=== PATIENT | female | born 1980 | race Two or more races ===

== ENCOUNTER 2019-01-17 18:31 | Emergency (ER) | payer OTHER ==
--- NOTE | 2019-01-17 18:37 | PDOC ---
Rapid Medical Evaluation Time Seen by Provider: 01/17/19 18:36 Medical Evaluation: 01/17/19 18:36 CC: cough x3 weeks PE: Speaking full sentences. Lungs CTAB. Orders: cxr Patient will proceed to ED for further evaluation. Discharge Disposition - Diagnosis Cough - Referrals - Patient Instructions - Post Discharge Activity
[2019-01-17 18:46] VITALS: BP 146/66; PULSE 104; TEMP 98.2; BMI 34.3
--- NOTE | 2019-01-17 19:32 | PDOC ---
History of Present Illness - General Chief Complaint: Cold Symptoms Stated Complaint: COUGH Time Seen by Provider: 01/17/19 18:36 History Source: Patient Exam Limitations: No Limitations - History of Present Illness Initial Comments: 01/17/19 19:41 Chief complaint: Cough Patient is a 38-year-old female with no significant medical history except reflux who states she has had a cough for a month. No fever. Patient states the cough is getting worse. Patient took antibiotics, unknown that she had at home. Has not seen a doctor. No fever. No recent travel. Non-smoker GENERAL/CONSTITUTIONAL: No fever, weakness. dizziness HEAD, EYES, EARS, NOSE AND THROAT: No change in vision. No ear pain or discharge. No sore throat. CARDIOVASCULAR: No chest pain RESPIRATORY: No shortness of breath or cough GASTROINTESTINAL: No pain, nausea, vomiting, diarrhea or constipation GENITOURINARY: No dysuria MUSCULOSKELETAL: No neck or back pain SKIN: No rash NEUROLOGIC: No headache, vertigo, loss of consciousness, or loss of sensation. GENERAL: The patient is awake, alert, and fully oriented, in no acute distress. HEAD: Normal with no signs of trauma. EYES: Pupils equal, round and reactive to light, sclera anicteric, conjunctiva clear. ENT: pharynx: no erythema, no exudate, uvula midline NECK: supple CHEST: clear, but has frequent cough when takes deep breath, nontender, rr ABD: soft, nontender BACK: no tenderness or signs of injury EXTREMITIES: Normal range of motion, no edema. NEUROLOGICAL: Normal speech, normal gait. SKIN: Warm, Dry Past History - Past Medical History Allergies/Adverse Reactions: Allergies Allergy/AdvReac Type Severity Reaction Status Date / Time No Known Allergies Allergy Verified 01/17/19 18:37 Home Medications: Ambulatory Orders Albuterol Sulfate Inhaler - [Ventolin Hfa Inhaler -] 2 inh PO Q4H #1 inh predniSONE [Deltasone -] 40 mg PO DAILY #8 tablet 01/17/19 COPD: No - Immunization History Immunization Up to Date: Yes - Psycho Social/Smoking Cessation Hx Smoking History: Never smoked Information on smoking cessation initiated: No Hx Alcohol Use: No Drug/Substance Use Hx: No *Physical Exam - Vital Signs Last Vital Signs Temp Pulse Resp BP Pulse Ox 98.2 F 104 H 22 H 146/66 100 01/17/19 18:37 01/17/19 18:37 01/17/19 18:37 01/17/19 18:37 01/17/19 18:37 Medical Decision Making - Medical Decision Making 01/17/19 19:42 38-year-old female with reflux with cough for 1 month, getting worse, no fever, took antibiotics, unknown that she had at home. Patient has frequent cough although not wheezing sounds like reactive. We will give DuoNeb, prednisone, chest x-ray and reassess Patient greatly improved after 2 duo nebs and prednisone, chest x-ray does not show acute process Discussed issues, findings, results, applicable medications and treatments and follow-up. All these were understood and all questions were answered 01/17/19 20:49 Discharge - Discharge Information Problems reviewed: Yes Clinical Impression/Diagnosis: Reactive airway disease Qualifiers: Asthma severity: moderate Asthma persistence: persistent Asthma complication type: with acute exacerbation Qualified Code(s): J45.41 - Moderate persistent asthma with (acute) exacerbation Condition: Stable Disposition: HOME - Admission No - Additional Discharge Information Prescriptions: Albuterol Sulfate Inhaler - [Ventolin Hfa Inhaler -] 2 inh PO Q4H #1 inh predniSONE [Deltasone -] 40 mg PO DAILY #8 tablet - Follow up/Referral Referrals: Eliseo Demarco MD [Primary Care Provider] - - Patient Discharge Instructions Patient Printed Discharge Instructions: DI for Reactive Airway Disease-Adult Additional Instructions: Use albuterol inhaler, 2 puffs every 4 hours as needed for wheezing. Take prednisone 40 mg once daily until finished. Return to the ER if fever, shortness of breath or getting sicker. Otherwise follow-up with your doctor in one to 2 days - Post Discharge Activity
[2019-01-17] MEDS ORDERED: predniSONE 20 MG TABLET (UD) PO ONE (19:37)
[2019-01-17] MEDS ORDERED: ALBUTEROL SO4 2.5/IPRATROPIUM 0.5 INH SOL 3 ML VIAL.NEB. NEB ONE ×3 (19:38→20:23)
[2019-01-17] MEDS ORDERED: predniSONE 20 MG TABLET (UD) ONE (20:04)
== END 2019-01-17 21:04 | disposition home or self-care (01) ==
LOC: JER 18:31 → JERFT 18:31
PROC: 3E0F7GC Introduction of Other Therapeutic Substance into Respiratory Tract, Via Natural or Artificial Opening (ICD-10-PCS; principal; 2019-01-17)
PROC: 3E0F7GC Introduction of Other Therapeutic Substance into Respiratory Tract, Via Natural or Artificial Opening (ICD-10-PCS; 2019-01-17)
DX: J45.41 Moderate persistent asthma with (acute) exacerbation (principal)
CPT/HCPCS: 71046-TC-FY; 99281-25

== ENCOUNTER 2019-05-22 18:10 | Emergency (ER) | payer OTHER ==
--- NOTE | 2019-05-22 18:26 | PDOC ---
Rapid Medical Evaluation Chief Complaint: Sore Throat Time Seen by Provider: 05/22/19 18:21 Medical Evaluation: Allergies Allergy/AdvReac Type Severity Reaction Status Date / Time No Known Allergies Allergy Verified 05/22/19 18:22 Vital Signs Temp Pulse Resp BP Pulse Ox 98.0 F 105 H 20 153/83 100 05/22/19 18:22 05/22/19 18:22 05/22/19 18:22 05/22/19 18:22 05/22/19 18:22 05/22/19 18:24 I have performed a brief in-person evaluation of this patient. The patient presents with a chief complaint of: throat discomfort/itching, no rash. No known allergies. No new meds/foods Pertinent physical exam findings:stable I have ordered the following:nothing The patient will proceed to the ED for further evaluation. Discharge Disposition - Diagnosis Throat irritation - Referrals - Patient Instructions - Post Discharge Activity
[2019-05-22 18:29] VITALS: BP 153/83; PULSE 105; TEMP 98; BMI 34.3
--- NOTE | 2019-05-22 18:46 | PDOC ---
History of Present Illness - General Chief Complaint: Sore Throat Stated Complaint: SORE THROAT Time Seen by Provider: 05/22/19 18:21 - History of Present Illness Initial Comments: 05/22/19 18:44 39-year-old female with sore throat x2 days no fever no comorbidities Past History - Past Medical History Allergies/Adverse Reactions: Allergies Allergy/AdvReac Type Severity Reaction Status Date / Time No Known Allergies Allergy Verified 05/22/19 18:22 Home Medications: Ambulatory Orders Albuterol Sulfate Inhaler - [Ventolin Hfa Inhaler -] 2 inh PO Q4H #1 inh predniSONE [Deltasone -] 40 mg PO DAILY #8 tablet 01/17/19 COPD: No - Immunization History Immunization Up to Date: Yes - Psycho Social/Smoking Cessation Hx Smoking History: Never smoked Have you smoked in the past 12 months: No Information on smoking cessation initiated: No Hx Alcohol Use: No Drug/Substance Use Hx: No Review of Systems - Review of Systems HEENTM: Yes: Throat Pain *Physical Exam - Vital Signs Last Vital Signs Temp Pulse Resp BP Pulse Ox 98.0 F 105 H 20 153/83 100 05/22/19 18:22 05/22/19 18:22 05/22/19 18:22 05/22/19 18:22 05/22/19 18:22 - Physical Exam 05/22/19 18:44 GENERAL: The patient is awake, alert, and fully oriented, in no acute distress. HEAD: Normal with no signs of trauma. EYES: sclera anicteric, conjunctiva clear. ENT: Ears normal tympanic membranes normal oropharynx clear uvula midline; there is a vesicular lesion on the soft palate NECK: Normal range of motion LUNGS: Breath sounds equal, clear to auscultation bilaterally. No wheezes, and no crackles. HEART: S1 and S2 without murmur, rub or gallop. ABDOMEN: Soft, nontender, normoactive bowel sounds. No guarding, no rebound. No masses. EXTREMITIES: Normal range of motion, no edema. No clubbing or cyanosis. No cords, erythema, or tenderness. NEUROLOGICAL: Cranial nerves II through XII grossly intact. PSYCH: Normal mood, normal affect. SKIN: Warm, Dry, normal turgor, no rashes or lesions noted. Medical Decision Making - Medical Decision Making 05/22/19 18:45 Discussed warm salt water gargles Tylenol and Motrin for pain follow-up with ENT most likely a viral illness Discharge - Discharge Information Problems reviewed: Yes Clinical Impression/Diagnosis: Throat irritation Condition: Stable Disposition: HOME - Admission No - Follow up/Referral Referrals: Eliseo Demarco MD [Primary Care Provider] - Edvin Bob MD [Staff Physician] - - Patient Discharge Instructions Additional Instructions: Tylenol and Motrin for pain as directed. Warm salt water gargles 5-6 times a day. Return to the emergency room for worsening symptoms. Without fail, follow -up with ENT in 2 to 3 days for further evaluation and treatment options. - Post Discharge Activity
== END 2019-05-22 18:51 | disposition home or self-care (01) ==
LOC: JER 18:10
DX: R07.0 Pain in throat (principal)
CPT/HCPCS: 99282-25

== ENCOUNTER 2019-05-24 10:56 | Day surgery (SDC) | payer OTHER ==
[2019-05-24] MEDS ORDERED: FERRIC CARBOXYMALTOSE 750 MG in SODIUM CHLORIDE 250 ML IVPB ONE (12:00)
[2019-05-24 13:37] VITALS: BP 111/65; PULSE 80; TEMP 98
== END 2019-05-24 14:25 | disposition home or self-care (01) ==
LOC: JINFUSION 10:56 → J7W 10:56 → JINFUSION 14:25
PROVIDERS: ATTEND Family Medicine
PROC: 3E033GC Introduction of Other Therapeutic Substance into Peripheral Vein, Percutaneous Approach (ICD-10-PCS; principal; 2019-05-24)
DX: D50.9 Iron deficiency anemia, unspecified (principal)
CPT/HCPCS: 96365; J1439

== ENCOUNTER 2021-08-17 11:10 | Day surgery (SDC) | payer OTHER ==
[2021-08-17] MEDS ORDERED: FERRIC CARBOXYMALTOSE 750 MG in SODIUM CHLORIDE 250 ML IVPB ONE (12:00)
[2021-08-17 12:10] VITALS: TEMP 98.6
[2021-08-17 13:07] VITALS: BP 119/65; PULSE 86
== END 2021-08-17 15:00 | disposition home or self-care (01) ==
LOC: FINFUSION 11:10 → FM/S 11:12 → FINFUSION 15:00
PROVIDERS: ATTEND Family Medicine
PROC: 3E033GC Introduction of Other Therapeutic Substance into Peripheral Vein, Percutaneous Approach (ICD-10-PCS; principal; 2021-08-17)
DX: D50.9 Iron deficiency anemia, unspecified (principal)
CPT/HCPCS: 96365; J1439

== ENCOUNTER 2021-08-24 11:16 | Day surgery (SDC) | payer OTHER ==
[2021-08-24] MEDS ORDERED: FERRIC CARBOXYMALTOSE 750 MG in SODIUM CHLORIDE 250 ML IVPB ONE (12:00)
[2021-08-24 12:01] VITALS: TEMP 98.5
[2021-08-24 13:26] VITALS: BP 113/67; PULSE 73
== END 2021-08-24 13:00 | disposition home or self-care (01) ==
LOC: FM/S 11:16 → FINFUSION 11:16
PROVIDERS: ATTEND Family Medicine
PROC: 3E033GC Introduction of Other Therapeutic Substance into Peripheral Vein, Percutaneous Approach (ICD-10-PCS; principal; 2021-08-24)
DX: D50.9 Iron deficiency anemia, unspecified (principal)
CPT/HCPCS: 81025; 96365; J1439

== ENCOUNTER 2021-12-18 14:35 | Emergency (ER) | payer OTHER ==
[2021-12-18 15:00] VITALS: BP 126/65; PULSE 96; RESP 18; TEMP 98.6; BMI 34.3
== END 2021-12-18 15:49 | disposition home or self-care (01) ==
LOC: JER 14:35
DX: J06.9 Acute upper respiratory infection, unspecified (principal)
CPT/HCPCS: 0241U-QW; 99283-25

== ENCOUNTER 2022-01-05 15:42 | Emergency (ER) | payer OTHER ==
[2022-01-05 16:00] VITALS: BP 158/70; PULSE 97; RESP 18; TEMP 98.5; BMI 34.3
== END 2022-01-05 19:01 | disposition home or self-care (01) ==
LOC: JER 15:42
DX: J40 Bronchitis, not specified as acute or chronic (principal)
CPT/HCPCS: 71046-TC-FY; 99283-25

== ENCOUNTER 2023-09-13 12:48 | Day surgery (SDC) | payer OTHER ==
[2023-09-13] MEDS ORDERED: diphenhydrAMINE HCL 50 MG CAPSULE PO PRN (13:05)
[2023-09-13] MEDS ORDERED: HYDROCORTISONE SOD SUCCINATE 100 MG/2 ML VIAL IVPB PRN (13:05)
[2023-09-13] MEDS: IRON SUCROSE INJECTION 200 MG in SODIUM CHLORIDE 100 ML IVPB ONE (13:14)
[2023-09-13 15:17] VITALS: BP 122/68; PULSE 67; RESP 16; TEMP 98.7
== END 2023-09-13 15:14 | disposition home or self-care (01) ==
LOC: FINFUSION 12:48 → FM/S 12:53 → FINFUSION 15:14
PROVIDERS: ATTEND Family Medicine
PROC: 3E033GC Introduction of Other Therapeutic Substance into Peripheral Vein, Percutaneous Approach (ICD-10-PCS; principal; 2023-09-13)
DX: D50.9 Iron deficiency anemia, unspecified (principal)
CPT/HCPCS: 96365; J1756

== ENCOUNTER 2023-09-20 12:18 | Day surgery (SDC) | payer OTHER ==
[2023-09-20] MEDS: IRON SUCROSE INJECTION 200 MG in SODIUM CHLORIDE 100 ML IVPB ONE (13:12)
[2023-09-22 08:11] VITALS: BP 122/72; PULSE 70; RESP 18; TEMP 98.5
== END 2023-09-20 14:44 | disposition home or self-care (01) ==
LOC: FINFUSION 12:18 → FM/S 12:39 → FINFUSION 14:44
PROVIDERS: ATTEND Family Medicine
PROC: 3E033GC Introduction of Other Therapeutic Substance into Peripheral Vein, Percutaneous Approach (ICD-10-PCS; principal; 2023-09-20)
DX: D50.9 Iron deficiency anemia, unspecified (principal)
CPT/HCPCS: 96365; J1756

== ENCOUNTER 2023-09-29 15:20 | Day surgery (SDC) | payer OTHER ==
[2023-09-29] MEDS: IRON SUCROSE INJECTION 200 MG in SODIUM CHLORIDE 100 ML IVPB ONE (16:02)
[2023-09-29 16:05] VITALS: RESP 16; TEMP 98
[2023-09-29 17:24] VITALS: BP 113/64; PULSE 70
== END 2023-09-29 17:25 | disposition home or self-care (01) ==
LOC: FINFUSION 15:20 → FM/S 15:21 → FINFUSION 17:25
PROVIDERS: ATTEND Family Medicine
PROC: 3E033GC Introduction of Other Therapeutic Substance into Peripheral Vein, Percutaneous Approach (ICD-10-PCS; principal; 2023-09-29)
DX: D50.9 Iron deficiency anemia, unspecified (principal)
CPT/HCPCS: 96365; J1756

== ENCOUNTER 2023-10-06 15:08 | Day surgery (SDC) | payer OTHER ==
[2023-10-06] MEDS: IRON SUCROSE INJECTION 200 MG in SODIUM CHLORIDE 100 ML IVPB ONE (15:35)
[2023-10-06 16:16] VITALS: BP 127/52; PULSE 67; TEMP 97.9
[2023-10-06 16:25] VITALS: RESP 17
== END 2023-10-06 16:25 | disposition home or self-care (01) ==
LOC: FM/S 15:08 → FINFUSION 15:08
PROVIDERS: ATTEND Family Medicine
PROC: 3E033GC Introduction of Other Therapeutic Substance into Peripheral Vein, Percutaneous Approach (ICD-10-PCS; principal; 2023-10-06)
DX: D50.9 Iron deficiency anemia, unspecified (principal)
CPT/HCPCS: 96365; J1756

== ENCOUNTER 2023-10-13 14:52 | Day surgery (SDC) | payer OTHER ==
[2023-10-13] MEDS ORDERED: diphenhydrAMINE HCL 25 MG CAPSULE (FP) PO PRN (15:15)
[2023-10-13] MEDS ORDERED: HYDROCORTISONE SOD SUCCINATE 100 MG/2 ML VIAL IVPUSH PRN (15:16)
[2023-10-13] MEDS: IRON SUCROSE COMPLEX 200 MG in SODIUM CHLORIDE 100 ML IVPB ONE (16:04)
[2023-10-13 17:03] VITALS: BP 127/52; PULSE 76; RESP 17; TEMP 97.8
== END 2023-10-13 17:43 | disposition home or self-care (01) ==
LOC: FM/S 14:52 → FINFUSION 14:52
PROVIDERS: ATTEND Family Medicine
PROC: 3E033GC Introduction of Other Therapeutic Substance into Peripheral Vein, Percutaneous Approach (ICD-10-PCS; principal; 2023-10-13)
DX: D50.9 Iron deficiency anemia, unspecified (principal)
CPT/HCPCS: 96365